=== PATIENT | male | born 1965 | race Caucasian/White ===

== ENCOUNTER 2021-05-30 11:41 | Observation (INO) | payer OTHER ==
[~2021-05-30] VITALS: Ht 175.3 cm; Wt 72.6 kg
[2021-05-30 12:16] LABS: BASOPHILS % (AUTO) 0.9 % (0.0-5.0); EOSINOPHILS % (AUTO) 0.9 % (0.0-8.0); LYMPHOCYTES % (AUTO) 22.4 % (21.0-51.0); MEAN CORPUSCULAR VOLUME 97.1 fL (79-99); MONOCYTES % (AUTO) 9.2 % (3.0-13.0); NEUTROPHILS % (AUTO) 66.2 % (40.0-77.0); PLATELET COUNT (AUTO) 231 K/uL (130-400); RED BLOOD CELL COUNT(AUTO) 5.15 MIL/uL (4.50-6.20); RED CELL DISTRIBUTION WIDTH 11.4 % (11.0-15.5); WHITE BLOOD COUNT (AUTO) 4.6 K/uL (4.8-10.8)
[2021-05-30 12:26] LABS: APPEARANCE,URINE Turbid (CLEAR); BILIRUBIN,URINE Negative (NEGATIVE); COLOR,URINE Yellow (YELLOW); GLUCOSE, URINE (UA) Negative (NEGATIVE); KETONES,URINE Negative (NEGATIVE); LEUKOCYTE ESTERASE ,URINE Trace (NEGATIVE); NITRATE,URINE Negative (NEGATIVE); OCCULT BLOOD,URINE Negative (NEGATIVE); PROTEIN,URINE Negative (NEGATIVE)
[2021-05-30] MEDS ORDERED: NITROGLYCERIN 1GM OINT 1 INCH/1GM TD ONE (12:30)
[2021-05-30] MEDS ORDERED: ASPIRIN 325MG TAB PO ONE (12:30)
[2021-05-30] MEDS ORDERED: NITROGLYCERIN 0.4 MG SL TAB SL PRN (12:30)
[2021-05-30 12:31] LABS: ALBUMIN 4.4 g/dL (3.5-5.0); BILIRUBIN,TOTAL 0.6 mg/dL (0.2-1.0); CREATININE 0.9 mg/dL (0.5-1.5); POTASSIUM 4.3 mmol/L (3.5-5.1); TOTAL PROTEIN, SERUM 7.8 g/dL (6.0-8.3)
[2021-05-30 12:48] LABS: AMORPHOUS SEDIMENT,UR Moderate /LPF (None Seen); BACTERIA,URINE Rare /HPF (None Seen); RBC,URINE 0-1 /HPF (0-1); SQUAMOUS EPITHELIAL CELL,UR Rare /HPF (0-2); WBC,URINE 0-1 /HPF (0-1)
[2021-05-30] MEDS: ACETAMINOPHEN 325 MG TAB PO PRN ×3 (16:59→22:32)
[2021-05-30] MEDS ORDERED: MORPHINE 2 MG SYG IVP PRN (17:00)
[2021-05-30] MEDS ORDERED: PANTOPRAZOLE 40 MG TAB DR PO SCH (17:00)
[2021-05-30 17:16] LABS: THYROID STIMULATING HORMONE 1.16 uIU/mL (0.36-3.74)
[2021-05-30] MEDS: IPRATROPIUM/ALBUTEROL SULFATE 3 ML SOLUTION IH SCH ×2 (23:34→23:43)
[2021-05-31] MEDS: IPRATROPIUM/ALBUTEROL SULFATE 3 ML SOLUTION IH SCH ×3 (06:00→18:00)
[2021-05-31] MEDS: ENOXAPARIN SODIUM 40 MG/0.4 ML SYRINGE SQ SCH (08:11)
[2021-05-31] MEDS: ASPIRIN 81 MG EC TAB PO SCH (08:11)
[2021-05-31] MEDS: PANTOPRAZOLE 40 MG TAB DR PO SCH (08:11)
[2021-05-31] MEDS ORDERED: ATORVASTATIN 20 MG TABLET PO SCH (09:00)
[2021-05-31] MEDS ORDERED: CA C1TAB98 PO (10:38)
[2021-05-31] MEDS ORDERED: DILT30TA3 PO (10:38)
[2021-05-31] MEDS ORDERED: GLUC-29 PO (10:38)
[2021-05-31] MEDS ORDERED: BISO5POW MC (10:38)
[2021-05-31] MEDS ORDERED: DEXL30CA3 PO (10:38)
[2021-05-31 21:20] VITALS: BP 125/80
[2021-06-01] VITALS (7 sets, daily range): BP systolic 94–120; BP diastolic 55–83
[2021-06-01 05:57] LABS: BASOPHILS % (AUTO) 0.9 % (0.0-5.0); EOSINOPHILS % (AUTO) 3.1 % (0.0-8.0); HEMATOCRIT 44.9 % (42-54); LYMPHOCYTES % (AUTO) 31.9 % (21.0-51.0); MEAN CORPUSCULAR HEMOGLOBIN 31.6 pg (27.0-33.0); MEAN CORPUSCULAR HGB CONC 32.5 g/dL (32.0-36.0); MEAN CORPUSCULAR VOLUME 97.2 fL (79-99); MONOCYTES % (AUTO) 10.7 % (3.0-13.0); PLATELET COUNT (AUTO) 202 K/uL (130-400); RED BLOOD CELL COUNT(AUTO) 4.62 MIL/uL (4.50-6.20); RED CELL DISTRIBUTION WIDTH 11.3 % (11.0-15.5); WHITE BLOOD COUNT (AUTO) 5.4 K/uL (4.8-10.8)
[2021-06-01 06:20] LABS: POTASSIUM 4.1 mmol/L (3.5-5.1)
[2021-06-01] MEDS: ENOXAPARIN SODIUM 40 MG/0.4 ML SYRINGE SQ SCH (09:00)
[2021-06-01] MEDS: ATORVASTATIN 40 MG TABLET PO SCH ×2 (09:04→20:17)
[2021-06-01] MEDS: ASPIRIN 81 MG EC TAB PO SCH (09:40)
[2021-06-01] MEDS: PANTOPRAZOLE 40 MG TAB DR PO SCH (09:40)
[2021-06-01] MEDS ORDERED: REGADENOSON 0.4 MG/5 ML PF SYG IVP SCH (13:00)
[2021-06-01] MEDS: IPRATROPIUM/ALBUTEROL SULFATE 3 ML SOLUTION IH SCH (19:59)
[2021-06-02 03:40] VITALS: BP 113/66
[2021-06-02 05:09] LABS: POTASSIUM 3.5 mmol/L (3.5-5.1)
[2021-06-02] MEDS: IPRATROPIUM/ALBUTEROL SULFATE 3 ML SOLUTION IH SCH ×2 (06:00)
[2021-06-02 07:05] VITALS: BP 118/77
[2021-06-02] MEDS ORDERED: ATOR40TA69 PO (08:04)
[2021-06-02] MEDS ORDERED: AEC81 PO (08:04)
[2021-06-02 08:21] LABS: ALBUMIN 3.8 g/dL (3.5-5.0); BILIRUBIN,DIRECT 0.1 mg/dL (0.0-0.3); BILIRUBIN,TOTAL 0.9 mg/dL (0.2-1.0); TOTAL PROTEIN, SERUM 6.9 g/dL (6.0-8.3)
[2021-06-02] MEDS ORDERED: PANT40TA55 PO (08:46)
== END 2021-06-02 10:00 | disposition home or self-care (01) ==
LOC: EDH 11:41 → EDHIP 14:15 → 4BH 05-31 21:41
PROVIDERS: ADMIT Internal Medicine; ATTEND Internal Medicine
DX: I24.9 Acute ischemic heart disease, unspecified (principal); E78.5 Hyperlipidemia, unspecified; I10 Essential (primary) hypertension; I25.10 Atherosclerotic heart disease of native coronary artery without angina pectoris; I48.0 Paroxysmal atrial fibrillation; K21.9 Gastro-esophageal reflux disease without esophagitis; R00.2 Palpitations; R79.89 Other specified abnormal findings of blood chemistry; Z79.899 Other long term (current) drug therapy; Z86.73 Personal history of transient ischemic attack (TIA), and cerebral infarction without residual deficits
CPT/HCPCS: 36415 ×4; 71045; 71250; 78452; 80048 ×2; 80053; 80061; 80076; 81001; 83880; 84443; 84484 ×3; 85025 ×2; 85378; 86140; 93005 ×2; 93017; 93970; 94640; 94664; 96372; 99285; A9500 ×2; G0378 ×58; J1650; J2785; 96374